=== PATIENT | male | born 1980 | race Hispanic/Latino ===

== ENCOUNTER 2016-12-30 05:43 | Day surgery (SDC) | payer OTHER ==
[~2016-12-30] VITALS: Ht 195.6 cm; Wt 103.0 kg
[2016-12-30] MEDS ORDERED: IBUPROFEN200 M1 PO (06:13)
--- NOTE | 2016-12-30 09:44 | NUR ---
12/30/16 0944 [place] SAT 100%, O2 REMOVED. PT AWOKE AND DENIES ANY PROBLEMS.
[2016-12-30] MEDS ORDERED: IBUPROFEN600 MG PO (10:06)
[2016-12-30] MEDS ORDERED: HYDROCODON-ACE1 EA10 PO (10:06)
--- NOTE | 2016-12-30 10:29 | NUR ---
1017-PATIENT ARRIVED FROM PACU TO DS ROOM 10 WITH HARRISON AT BEDSIDE. PATIENT REPORTS PAIN HAS DECREASED FROM 7-4/10 REPORTS TOLERABLE 100% ON RA, VSS. PATIENT TOLERATED FEW SIPS OF WATER. PLAN TO ADMINISTER ABX.
--- NOTE | 2016-12-30 10:38 | NUR ---
1035-DRESSING TO RIGHT LOWER ABDOMEN CDI WITH MEPILEX AND OPSITE. PATIENT TOLERATED EATING CRACKERS. PAIN REMAINS 4/10 WILL PLAN TO MEDICATE PO. GUARDS AT BEDSIDE. DENIES NAUSEA.
--- NOTE | 2016-12-30 11:14 | NUR ---
1046-PATIENTS PAIN 4/10 MEDICATED WITH 1 NORCO 5/325MG. PATIENT GIVEN JELLO. NO REQUESTS AT THIS TIME. TOLERATING FLUIDS.
--- NOTE | 2016-12-30 11:22 | NUR ---
1125-PATIENT SLEEPING AWAKENS TO VERBAL STIMULI REPORTS PAIN DECREASING WHEN ASKED, PATIENT RETURNS TO SLEEP.
--- NOTE | 2016-12-30 12:01 | NUR ---
1150-PATIENT UP TO BATHROOM VOIDED 350 ML REPORTED FEELING DIZZYNESS TO GUARDS. PATIENT BACK TO BED FEELS A LITTLE SWEATY. BP 105/61 HR 55. IV FLUSHED AND INFUSING. PATIENT REPORTS PAIN HAS DECREASED. AFTER A MINUTES BACK IN BED REPORTS DIZZYNESS GOING AWAY. PATIENT DRANK 250ML'S WATER SINCE RETURNING FROM PACU AND GIVEN MORE JELLO. GUARDS AT BEDSIDE.
--- NOTE | 2016-12-30 12:48 | NUR ---
1235-PATIENT DISCHARGED BACK TO [facility] WITH GUARDS. DENIED DIZZYNESS VSS. DRESSING CDI. PATIENT ATE PUDDING PRIOR TO DC.
--- NOTE | 2016-12-31 22:37 | OR ---
[facility] [address], [place] [address] Signed DATE OF PROCEDURE: 12/30/16 PREOPERATIVE DIAGNOSIS Recurrent right inguinal hernia (performed elsewhere initially). POSTOPERATIVE DIAGNOSIS Recurrent right indirect inguinal hernia with sliding component including bladder fat and appendix. PROCEDURE Repair of recurrent right inguinal hernia, indirect sliding type. Prolonged, complicated, difficult. Implantation of Prolene mesh (underlay technique). Appendectomy. SURGEON: Darien Ryan MD. ANESTHESIA General LMA (Scottie Woods CRNA) and local 0.25% Marcaine with epinephrine 20 mL. INDICATION This 36-year-old dark-skinned man is a prisoner at [facility] and a patient of Dr. Jeong. He underwent right inguinal hernia repair elsewhere. He has developed a bulge in the area of the prior right inguinal hernia repair site. He does not appear to have incarceration, but the problem is symptomatic. He is admitted to undergo repair of the recurrent hernia. Understand the risks of bleeding, infection, cord injury or compromise, and other unforeseen complications. He understands the risks and wished to proceed. FINDINGS Peculiar anatomic findings were noted. Dense fibrosis as expected was noted within the incision. It appeared there was implanted mesh beneath the layer of the external oblique, but covering most of the cord forming a zaria-external ring. The cord structures emanating from this area beneath what we felt the mesh appeared to have indirect sac deep to the cord structures. Division of the implanted mesh revealed a large portion of the cord and it appeared that the mesh had been implanted over the cord largely, though possibly some beneath it as well. The hernia defect was an indirect hernia sac with sliding component including a fair amount of bladder fat and portion of the cecum with the appendix. Appendectomy was performed without opening of the hollow viscus at all and repair included implantation of Prolene mesh in the properitoneal space in an underlay technique with the cord completely superficial to the new repair. Security laterally and medially was related to the inguinal ligament with its fibrotic component of previous Electronically Signed By: DARIEN RYAN MD 12/31/16 2237 PATIENT NAME: MARIA C PEREZ OPERATIVE REPORT DATE OF : 76 PHYSICIAN: DARIEN RYAN MD REPORT #: [id number] REPORT IS CONFIDENTIAL AND NOT TO BE RELEASED WITHOUT AUTHORIZATION [facility] [address], [place] [address] Signed implanted mesh as well as attending the transversus which was markedly thickened related to the mesh as well. High level of confidence is noted that this should be a good and durable repair. The cord structures were unharmed. The external oblique was closed over the cord structures. PROCEDURE The patient was brought to the operating room, given a general anesthetic by LMA technique. Preoperative antibiotic Ancef was given. Sequential compression device stocking used and heparin subcutaneously administered. The lower abdomen was clipped and prepared with a chlorhexidine solution and draped sterilely. An incision was made in the right groin directly over the previous incision. Dissection was carried through the subcutaneous tissue using electrocautery. Fibrotic scar tissue was noted. External oblique was identified and appeared to have impressive fibrosis associated with it. This was dissected free revealing implanted mesh that was essentially over and enveloping the cord structures. The cord emanated inferiorly to this from what appeared to be a zaria-external ring. The firm and dense fibrotic layer essentially over the cord was then divided with all due care and meticulous technique freeing the underlying cord more fully. A bulky cord with hernia sac was noted. The true floor of the canal was without obvious mesh repair. The cord was encircled with a Estela drain and using electrocautery, the crem asteric muscle fiber over the cord which was rather fibrotic and attenuated was divided and cord structures were then from an indirect hernia sac. The indirect hernia sac was rather bulky. Once the cord structures were fully and the indirect hernia sac identified, it was opened and within it was some bladder fat medially. The hernia sac itself was more fully freed from the cord and its origin and there appeared to be peritoneum and ultimately clearly the base of the cecum and the appendix. The appendix was delivered into the wound. It was relatively long, probably 10 cm or more in length and somewhat dilated, but not acutely inflamed. Clearly this represented a sliding component of not only bladder fat but peritoneal attachments with cecum and the appendix. The appendix and cecum were freed from this and a window created between the appendix and the mesoappendix and mesoappendix secured with clamps and ligated with silk ties. A AGNIESZKA stapling device was used to transect the appendix flushed with the cecum with no enteric spillage at all. This allowed for retreat of the cecum and so forth back into the peritoneal cavity. The bladder fat medially was somewhat dissected free and ultimately clearly needed to simply be inverted into the peritoneal cavity. The hernia sac was approximated with 2-0 silk suture, folding and inverting the sliding component of bladder fat. The fibrotic area of the tendon of transversus abdominis was grasped with an Allis clamp and the properitoneal fat gently bluntly dissected free, freeing the apropriate space entirely. Laterally, there was fibrosis related to a prior implantation of mesh. At the Electronically Signed By: DARIEN RYAN MD 12/31/16 9394 PATIENT NAME: MARIA C PEREZEL OPERATIVE REPORT DATE OF : 76 PHYSICIAN: DARIEN RYAN MD REPORT #: [id number] REPORT IS CONFIDENTIAL AND NOT TO BE RELEASED WITHOUT AUTHORIZATION [facility] [address], [place] [address] Signed pubic tubercle, a blunt dissection allowed for a space in the properitoneal area there as well. Cord structures were completely freed and unencumbered by the fibrotic process of the past. A segment of Prolene mesh was cut to an elliptical configuration and secured in an underlay technique with interrupted 2-0 Prolene sutures. A defect was cut in the graft to accommodate the cord and the tails were secured laterally with all due care. The aperture for the cord structures was snug but not tight; 20 mL of 0.25% Marcaine with epinephrine was injected locally. The external oblique was then reapproximated overall of this in the standard way. The Joe's layer was reapproximated with interrupted 2-0 Vicryl and skin closed with running subcuticular 3-0 Vicryl. The patient tolerated the procedure well, though it was rather lengthy, about 2.5 hours in total. Sponge, needle, and instrument counts reported as correct x3. The operation was prolonged, complicated, and difficult on the basis of anatomic factors and length of time. MD SHUN Evans/Ramsey /[id number] cc: NATALIIA Jaramillo Electronically Signed By: DARIEN RYAN MD 08/02/087 PATIENT NAME: MARIA C PEREZ OPERATIVE REPORT DATE OF : 76 PHYSICIAN: DARIEN RYAN MD REPORT #: [id number] REPORT IS CONFIDENTIAL AND NOT TO BE RELEASED WITHOUT AUTHORIZATION
== END 2016-12-30 12:35 | disposition home or self-care (01) ==
LOC: DS 05:43
PROVIDERS: Surgery
PROC: 0YU50JZ Supplement Right Inguinal Region with Synthetic Substitute, Open Approach (ICD-10-PCS; principal; 2016-12-30 06:45)
PROC: 0DTJ0ZZ Resection of Appendix, Open Approach (ICD-10-PCS; 2016-12-30 06:45)
DX: K40.91 Unilateral inguinal hernia, without obstruction or gangrene, recurrent (principal); K36 Other appendicitis
CPT/HCPCS: 00830; 80053; 81001; 85025; C1781; J0690; J0694; J1644; J1885; J2405; J2704; J3010; J7120